=== PATIENT | male | born 1980 | race Caucasian/White ===

== ENCOUNTER 2017-06-07 21:33 | Emergency (ER) | payer BC, OTHER ==
[~2017-06-07] VITALS: Ht 175.3 cm; Wt 75.1 kg
[~2017-06-07 21:33] MED LIST: GLC500 PO; GLIM2TAB2 PO; LISI-461 PO; PRAV20TA PO; RISP1TAB68 PO
[2017-06-07 21:37] VITALS: TEMP 36.4; Ht 175.3 cm; Wt 75.1 kg
[2017-06-07] MEDS ORDERED: PRAV20TA2 PO (21:59)
[2017-06-07] MEDS ORDERED: METF-384 PO (21:59)
[2017-06-07] MEDS ORDERED: LIDOCAINE HCL 2% VISC SOLN 20 ML UDC PO STA (22:01)
[2017-06-07] MEDS ORDERED: ALUMINUM/MAGNESIUM SUSP 30 ML UDC PO STA (22:01)
[2017-06-07 22:17] VITALS: O2SAT 97
[2017-06-07 22:36] LABS: BASO % 0.6 %; BASO ABS # 0.05 K/uL (0-0.2); EOS % 2.3 %; EOS ABS # 0.18 K/uL (0-0.5); HEMATOCRIT 45.4 % (42-52); HEMOGLOBIN 16.6 g/dL (14.0-18.0); IG# 0.03 K/uL (0.00-0.02); LYMPH % 30.6 %; LYMPH ABS # 2.42 K/uL (1.2-3.4); MEAN CELL VOLUME 84.2 fL (80-100); MEAN CORPUSCULAR HEMOGLOBIN 30.8 pg (25-34); MEAN CORPUSCULAR HGB CONC 36.6 g/dl (32-36); MEAN PLATELET VOLUME 10.5 fL (7.4-10.4); MONO % 4.9 %; MONO ABS # 0.39 K/uL (0.11-0.59); NEUT % 61.2 %; NEUT ABS # 4.84 K/uL (1.4-6.5); PLATELET COUNT 186 K/uL (130-400); RED CELL DISTRIBUTION WIDTH CV 12.1 % (11.5-14.5); RED CELL DISTRIBUTION WIDTH SD 36.6 fL (36.4-46.3); WHITE BLOOD COUNT 7.91 K/uL (4.8-10.8)
--- NOTE | 2017-06-07 22:59 | DIAGNOSTIC IMAGING REPORT ---
ULTRASOUND RIGHT UPPER QUADRANT ABDOMEN CLINICAL HISTORY: Epigastric abdominal pain. COMPARISON STUDY: No priors. TECHNIQUE: Real-time, grayscale, and color flow sonography of the right upper quadrant of the abdomen was performed. Images are reviewed in the transverse and longitudinal planes. FINDINGS: Liver: The liver is normal in size and echotexture. There is no intrahepatic biliary ductal dilatation. The main portal vein is patent. Gallbladder: The gallbladder is contracted. No gallstones are identified. There is no gallbladder wall thickening or pericholecystic fluid. A sonographic Moreno's sign is reportedly absent. The common bile duct measures up to 0.3 cm in diameter. Pancreas: Visualized portions of the pancreatic head and body are normal in appearance. Right kidney: Survey images of the right kidney demonstrate normal size and echotexture. There is no hydronephrosis. Ascites: None. IMPRESSION: Unremarkable sonographic assessment of the right upper quadrant. No gallstones are identified. Electronically signed by: Edi Islas M.D. 06/07/2017 10:58 PM Dictated Date/Time: 06/07/2017 10:57 PM
[2017-06-07 23:01] LABS: GLUCOSE 542 mg/dl (70-99)
[2017-06-07 23:02] LABS: ALBUMIN 4.2 gm/dl (3.4-5.0); ALKALINE PHOSPHATASE 121 U/L (45-117); ALT/SGPT 22 U/L (12-78); AST/SGOT 7 U/L (15-37); BLOOD UREA NITROGEN 11 mg/dl (7-18); CALCIUM 9.2 mg/dl (8.5-10.1); CARBON DIOXIDE 32 mmol/L (21-32); CREATININE 0.95 mg/dl (0.60-1.40); LIPASE 519 U/L (73-393); POTASSIUM 4.1 mmol/L (3.5-5.1); SODIUM 132 mmol/L (136-145); TOTAL PROTEIN 6.9 gm/dl (6.4-8.2)
[2017-06-07] MEDS ORDERED: SODIUM CHLORIDE 0.9% 1000ML 2,000 ML IV STA (23:07)
[2017-06-07] MEDS ORDERED: NovoLIN-R INSULIN PER UNIT CHARGE IV STA (23:07)
[2017-06-07] MEDS ORDERED: PANTOprazole SOD 40 MG TAB PO STA (23:12)
[2017-06-08] MEDS ORDERED: PANT40TA PO (00:47)
[2017-06-08 01:33] VITALS: BP 123/71; PULSE 78; O2SAT 98
--- NOTE | 2017-06-08 03:01 | EMERGENCY ROOM VISIT NOTE ---
History First contact with patient: 21:48 Chief Complaint: ABDOMINAL PAIN Stated Complaint: ABD PAIN Nursing Triage Summary: Pt c/o upper and LLQ abdominal pain for a few days, states that it feels like something is moving, pt denies n/v/d, fever or chills. Pt denies pre ED tx. History of Present Illness The patient is a 37 year old male who presents to the Emergency Room with complaints of epigastric discomfort for the past few days described as aching, ranging in severity 5 out of 10. Nothing makes it better or worse. Patient denies chest pain, dyspnea, fever, chills, nausea, vomiting, diarrhea, back pain , urinary symptoms, dysuria pain, penile pain. Patient does not routinely check his blood sugars. He has been underneath more stressed lately. No history of stomach ulcers. Review of Systems See HPI for pertinent positives & negatives. A total of 10 systems reviewed and were otherwise negative. Past Medical/Surgical History Medical Problems: (1) Benign hypertension (2) Diabetes mellitus (3) Hyperlipidemia (4) Psychotic disorder Social History Smoking Status: Current Every Day Smoker Alcohol Use: none Drug Use: none Marital Status: Housing Status: lives with family Occupation Status: unemployed Current/Historical Medications Scheduled Glimepiride (Glimepiride), 2 MG PO DAILY Lisinopril (Zestril), 10 MG PO DAILY Metformin Hcl (Glucophage), 1,000 MG PO BIDM Pantoprazole (Protonix), 40 MG PO DAILY Pravastatin Sodium (Pravachol), 20 MG PO DAILY Physical Exam Vital Signs Date Time Temp Pulse Resp B/P (MAP) Pulse Ox O2 Delivery O2 Flow Rate FiO2 06/08/17 01:33 78 18 123/71 98 06/07/17 22:52 86 20 129/77 97 Room Air 06/07/17 22:21 94 06/07/17 22:17 97 Room Air 06/07/17 21:37 36.4 119 18 157/75 98 Room Air Physical Exam VITALS: Vitals are noted on the nurse's note and reviewed by myself. Vital signs stable. GENERAL: Pleasant male, in no acute distress, nondiaphoretic, well-developed well-nourished. SKIN: The skin was without rashes, erythema, edema, or bruising. There is no tenting of the skin. Capillary reflex less than 2 seconds. HEAD: Normocephalic atraumatic. EARS: External auditory canals clear, tympanic membranes pearly ellsworth without erythema or effusion bilaterally. EYES: Pupils equal round and reactive to light and accommodation. Conjunctivae without injection, sclerae without icterus. Extraocular movements intact. NOSE: Patent, turbinates without inflammation or discharge. MOUTH: Mucous membranes moist. Pharynx without erythema or exudate. Uvula midline. Airway patent. Tongue does not deviate. NECK: Supple without nuchal rigidity. No lymphadenopathy. No thyromegaly. Cervical spine is nontender. No JVD. HEART: Regular rate and rhythm without murmurs gallops or rubs. LUNGS: Clear to auscultation bilaterally without wheezes, rales or rhonchi. No dullness to percussion. No retractions or accessory muscle use. ABDOMEN: Positive bowel sounds x 4. Normal tympanic percussion. Soft, minimally tender epigastric region, no CVA tenderness, without masses or organomegaly. Moreno sign negative. No guarding or rebound tenderness. MUSCULOSKELETAL: No muscle atrophy, erythema, or edema noted. NEURO: Patient was alert and oriented to person place and time. Normal sensation to light and sharp touch. No focal neurological deficits. Medical Decision & Procedures Laboratory Results 06/07/17 22:14 Red Blood Count 5.39, Mean Corpuscular Volume 84.2, Mean Corpuscular Hemoglobin 30.8, Mean Corpuscular Hemoglobin Concent 36.6, Mean Platelet Volume 10.5, Neutrophils (%) (Auto) 61.2, Lymphocytes (%) (Auto) 30.6, Monocytes (%) (Auto) 4.9, Eosinophils (%) (Auto) 2.3, Basophils (%) (Auto) 0.6, Neutrophils # (Auto) 4.84, Lymphocytes # (Auto) 2.42, Monocytes # (Auto) 0.39, Eosinophils # (Auto) 0.18, Basophils # (Auto) 0.05 06/07/17 22:14 Test 06/07/17 22:14 06/07/17 23:20 06/08/17 00:05 06/08/17 01:20 White Blood Count 7.91 K/uL (4.8-10.8) Red Blood Count 5.39 M/uL (4.7-6.1) Hemoglobin 16.6 g/dL (14.0-18.0) Hematocrit 45.4 % (42-52) Mean Corpuscular Volume 84.2 fL (80-100) Mean Corpuscular Hemoglobin 30.8 pg (25-34) Mean Corpuscular Hemoglobin Concent 36.6 g/dl (32-36) Platelet Count 186 K/uL (130-400) Mean Platelet Volume 10.5 fL (7.4-10.4) Neutrophils (%) (Auto) 61.2 % Lymphocytes (%) (Auto) 30.6 % Monocytes (%) (Auto) 4.9 % Eosinophils (%) (Auto) 2.3 % Basophils (%) (Auto) 0.6 % Neutrophils # (Auto) 4.84 K/uL (1.4-6.5) Lymphocytes # (Auto) 2.42 K/uL (1.2-3.4) Monocytes # (Auto) 0.39 K/uL (0.11-0.59) Eosinophils # (Auto) 0.18 K/uL (0-0.5) Basophils # (Auto) 0.05 K/uL (0-0.2) RDW Standard Deviation 36.6 fL (36.4-46.3) RDW Coefficient of Variation 12.1 % (11.5-14.5) Immature Granulocyte % (Auto) 0.4 % Immature Granulocyte # (Auto) 0.03 K/uL (0.00-0.02) Anion Gap 5.0 mmol/L (3-11) Est Creatinine Clear Calc Drug Dose 107.5 ml/min Estimated GFR () 118.9 Estimated GFR (Non- 102.6 BUN/Creatinine Ratio 11.1 (10-20) Calcium Level 9.2 mg/dl (8.5-10.1) Total Bilirubin 0.5 mg/dl (0.2-1) Direct Bilirubin 0.1 mg/dl (0-0.2) Aspartate Amino Transf (AST/SGOT) 7 U/L (15-37) Alanine Aminotransferase (ALT/SGPT) 22 U/L (12-78) Alkaline Phosphatase 121 U/L (45-117) Troponin I < 0.015 ng/ml (0-0.045) Total Protein 6.9 gm/dl (6.4-8.2) Albumin 4.2 gm/dl (3.4-5.0) Lipase 519 U/L (73-393) Beta-Hydroxybutyric Acid 5.30 mg/dL (0.2-2.81) Urine Color YELLOW Urine Appearance CLEAR (CLEAR) Urine pH 5.0 (4.5-7.5) Urine Specific Wilson 1.042 (1.000-1.030) Urine Protein NEG (NEG) Urine Glucose (UA) 3+ (NEG) Urine Ketones NEG (NEG) Urine Occult Blood NEG (NEG) Urine Nitrite NEG (NEG) Urine Bilirubin NEG (NEG) Urine Urobilinogen NEG (NEG) Urine Leukocyte Esterase NEG (NEG) Bedside Troponin I < 0.030 ng/ml (0-0.045) Bedside Glucose 233 mg/dl (70-99) Medications Administered Medications (Trade) Dose Ordered Sig/Rafaela Route Start Time Stop Time Status Last Admin Dose Admin Lidocaine HCl (Viscous Lidocaine 2% Soln) 10 ml NOW STAT PO 06/07/17 22:01 06/07/17 22:03 DC 06/07/17 22:14 10 ML Al Hydroxide/Mg Hydroxide (Maalox Susp) 30 ml NOW STAT PO 06/07/17 22:01 06/07/17 22:03 DC 06/07/17 22:14 30 ML Sodium Chloride 2,000 ml @ 999 mls/hr Q2H1M STAT IV 06/07/17 23:07 06/08/17 01:07 DC 06/07/17 23:21 999 MLS/HR Insulin Human Regular (novoLIN-R U-100 PER UNIT) 10 units NOW STAT IV 06/07/17 23:07 06/07/17 23:09 DC 06/07/17 23:23 10 UNITS Pantoprazole Sodium (Protonix Tab) 40 mg NOW STAT PO 06/07/17 23:12 06/07/17 23:13 DC 06/07/17 23:21 40 MG ED Course Prior records/ancillary studies reviewed. Triage Nursing notes reviewed. The patient's history was concerning for abdominal pain. Differential diagnosis: Etiologies such as appendicitis, diverticulitis, PUD, biliary pathology, UTI, pancreatitis, obstruction, mesenteric ischemia, aortic pathology, infections, inflammatory bowel disease, renal colic, as well as others were entertained. Physical examination findings: As above. ER treatment provided: IV fluids, insulin, GI cocktail On reassessment the patient felt better. Diagnostics interpreted by me: The labs revealed hyperglycemia without DKA. Repeat blood sugar is improved. Negative urine Imaging studies: Ultrasound negative for acute cholecystitis per radiology Exam and history seem consistent with reflux and hyperglycemia without DKA. Patient felt much better after being medicated as above. He did not have acute abdomen on exam. Symptoms have been ongoing for several days now. He was counseled on his blood sugar. He was advised to monitor this. No signs of infection. Patient had no chest pain or shortness of breath or coughing. No flulike illness. He had a negative urine. He was advised take medications as directed, rest, stay well-hydrated and to follow-up family care in a day or 2 or here in the ER sooner for chest pain, difficulty breathing, fevers, vomiting , black or blood in the stool, worsening signs or symptoms or as needed. By the evaluation outlined above emergent etiologies such as appendicitis, diverticulitis, PUD, biliary pathology, UTI, pancreatitis, obstruction, mesenteric ischemia, aortic pathology, infections, inflammatory bowel disease, renal colic, as well as others were deemed relatively unlikely. The pt informed about the findings as listed above. All questions were answered and pleased with the treatment. Return instructions were outlined and the patient was discharged in stable condition. Outpatient prescription management: Protonix Referral: The patient was referred back to their primary care physician for follow-up in 2 to 3 days for a recheck of the current condition. Case reviewed with my attending. The chart was completed utilizing [employer] Speech voice recognition software. Grammatical errors, random word insertions, pronoun errors, and incomplete sentences are an occassional consequence of this system due to software limitations, ambient noise, and hardware issues. Any formal questions or concerns about the content, text, or information contained within the body of this dictation should be directly addressed to the physician assistant statistician for clarification. Medical Decision As above Medication Reconcilliation Current Medication List: was personally reviewed by me Blood Pressure Screening Patient's blood pressure: Normal blood pressure Impression Primary Impression: GERD (gastroesophageal reflux disease) Additional Impression: Hyperglycemia due to type 2 diabetes mellitus Departure Information Dispostion Home / Self-Care Condition GOOD Prescriptions Pantoprazole (Protonix) 40 Mg Tab 40 MG PO DAILY for 14 Days, #14 TAB Prov: Yessi Sheppard .ESPERANZA 06/08/17 Forms Call Back Authorization, HOME CARE DOCUMENTATION FORM, Work Instructions, Return To Work: 2 days IMPORTANT VISIT INFORMATION Patient Instructions Hyperglycemia, GERD, My [facility] Additional Instructions Monitor your blood sugar. It is high. Protonix 40 m tablet daily for next 2 weeks. Take this on an empty stomach. Try Maalox or Zantac for breakthrough symptoms for reflux. Avoid large meals. Avoid acidic foods. Rest and drink plenty of fluids as tolerated. Continue current medications. Avoid strenuous activities and anything that worsens your pain. Resume normal activities once your symptoms resolve. Return to the ER immediately for worsening or persistent chest pain, abdominal pain, black or blood in your stools, vomiting, fevers, chest pains, difficulty breathing, worsening of your condition, or as needed. Follow up with your primary physician in 2-3 days for a recheck of your current condition. Work Instructions Return To Work: 2 days Problem Qualifiers Primary Impression: GERD (gastroesophageal reflux disease) Esophagitis presence: esophagitis presence not specified Qualified Codes: K21.9 - Gastro-esophageal reflux disease without esophagitis Additional Impression: Hyperglycemia due to type 2 diabetes mellitus Diabetes mellitus hims coder insulin use: without prison use Qualified Codes: E11.65 - Type 2 diabetes mellitus with hyperglycemia
== END 2017-06-08 01:39 | disposition home or self-care (01) ==
LOC: C.EDB 21:36 → C.EDC 06-08 01:39
DX: K21.9 Gastro-esophageal reflux disease without esophagitis (principal); E11.65 Type 2 diabetes mellitus with hyperglycemia; I10 Essential (primary) hypertension; E78.5 Hyperlipidemia, unspecified; F17.200 Nicotine dependence, unspecified, uncomplicated; Z86.59 Personal history of other mental and behavioral disorders; Z79.84 Long term (current) use of oral hypoglycemic drugs; Z79.899 Other long term (current) drug therapy

== ENCOUNTER 2022-06-10 20:41 | Inpatient (IN) ==
--- NOTE | 2022-06-10 22:38 | Emergency Department Note ---
History of Present Illness General Chief complaint: Dental/Oral Stated complaint: SWOLLEM FACE, BAD TOOTH Time Seen by Provider: 06/10/22 22:36 History of Present Illness Maximum Pain Intensity: 8 This 42-year-old male patient presents to the emergency department for evaluation of dental pain and swollen face. He has been complaining of left upper dental pain since yesterday and now has left-sided facial swelling. The swelling is getting progressively worse and seems to be getting worse pretty quick. Denies any discharge from the mouth. Denies fevers. Still able to swallow, but it is painful. Having a lot of pressure around his left eye as well, but no change in his vision. He rates the pain as sharp and throbbing and 8/10. He has not seen anyone for the symptoms yet and does not have a dentist appointment yet. Denies any chest pain or SOB. Denies any abdominal pain, nausea, or vomiting. He is a diabetic. Home Medications Medication Instructions Recorded Confirmed Type albuterol sulfate 90 mcg/actuation 2 puff inhalation Q4H PRN 06/11/22 06/11/22 History aerosol inhaler Shortness Of Breath Or Wheezing insulin aspart U-100 100 unit/mL 12 unit subcut AC 06/11/22 06/11/22 History (3 mL) subcutaneous pen insulin glargine 100 unit/mL (3 30 unit subcut HS 06/11/22 06/11/22 History mL) subcutaneous pen (Lantus Solostar U-100 Insulin) simvastatin 40 mg tablet 40 mg PO HS 06/11/22 06/11/22 History Allergies Allergy/AdvReac Type Severity Reaction Status Date / Time No Known Allergies Allergy Mild NONE Verified 03/06/09 08:13 Past Med/Surg History Medical History GERD (gastroesophageal reflux disease) Hyperglycemia due to type 2 diabetes mellitus Surgical History No pertinent past surgical history Social History Smoking Status: Current every day smoker Hx Alcohol Use: No Hx Substance Use: No Preferred Language: Kittitian Communication Ability: Effective Business Ethics Professor Required: No Beliefs That Will Affect Care: None Current Living Situation: Spouse Feels Safe at Home: Yes Review of Systems See HPI for pertinent positives & negatives. Physical Exam Vital Signs Vital Signs - 24 hr 06/10/22 20:45 06/10/22 23:44 06/11/22 02:31 Temperature 36.3 C L 36.9 C Temperature Source Temporal Artery Scan Oral Pulse Rate 98 H Pulse Rate [Finger] 75 80 Pulse Rhythm [Finger] Pulse Strength [Finger] Respiratory Rate 18 20 16 Respiratory Effort / Characteristics Non-Labored Non-Labored Spontaneous Respiratory Depth Normal Normal Respiratory Pattern Blood Pressure 191/99 H Blood Pressure [Right Arm] 161/85 H 170/103 H Blood Pressure Mean 129 Blood Pressure Mean [Right Arm] 110 125 Blood Pressure Position [Right Arm] Pulse Oximetry 99 96 98 Oxygen Delivery Method Room Air Room Air Room Air Sepsis Recent Fever Within 48 Hours No Sepsis New/Unexplained Change in Mental Status No Sepsis Action Taken by Nursing No Action Required 06/11/22 03:00 Temperature Temperature Source Pulse Rate Pulse Rate [Finger] 85 Pulse Rhythm [Finger] Regular Pulse Strength [Finger] Normal Respiratory Rate 18 Respiratory Effort / Characteristics Non-Labored Respiratory Depth Normal Respiratory Pattern Regular Blood Pressure Blood Pressure [Right Arm] 168/88 H Blood Pressure Mean Blood Pressure Mean [Right Arm] 114 Blood Pressure Position [Right Arm] Lying Pulse Oximetry 98 Oxygen Delivery Method Room Air Sepsis Recent Fever Within 48 Hours Sepsis New/Unexplained Change in Mental Status Sepsis Action Taken by Nursing Vital Signs: Vitals are noted on the nurse's note and reviewed by myself. GENERAL: 42-year-old male, in no acute distress, non-diaphoretic, well-developed well-nourished. SKIN: There is significant edema to the left side of the face extending from just below the maxillary/zygomatic process up towards the left eye. The left eye is now starting to become swollen shut from the edema. Minimal erythema without warmth. No fluctuance or induration noted. Capillary reflex less than 2 seconds. HEAD: Normocephalic atraumatic. EARS: External auditory canals clear, tympanic membrane pearly ellsworth without erythema or effusion. No tragus tenderness. No mastoid tenderness. EYES: Pupils equal round and reactive to light and accommodation. Conjunctivae without injection, sclerae without icterus. Extraocular movements intact. NOSE: Patent, turbinates inflamed with no discharge. Positive left-sided maxillary sinus tenderness. MOUTH: There is a dental brandon of the left upper canine, but no obvious evidence for discharge or abscess. The gum is swollen and tender around the tooth. Mucous membranes moist. Airway patent, uvula midline. Pharynx without erythema or edema. No exudate or postnasal drip. No evidence for peritonsillar abscess. NECK: Supple without nuchal rigidity. No lymphadenopathy. HEART: Regular rate and rhythm without murmurs gallops or rubs. LUNGS: Clear to auscultation bilaterally without wheezes, rales or rhonchi. No accessory muscle use or retractions. NEURO: Patient was alert and oriented to person place and time. Course Administered Medications Discontinued Medications Sodium Chloride (Nss 1000ml) 1,000 mls @ 999 mls/hr IV .Q1H1M ONE Stop: 06/11/22 00:05 Last Infusion: 06/11/22 00:52 Dose: 0 mls/hr Documented By: Admin: 06/10/22 23:40 Dose: 999 mls/hr Documented By: FRED Ampicillin Sodium/Sulbactam Sodium 3,000 mg/ Sodium Chloride 108 mls @ 200 mls/hr IV NOW STA; Protocol Stop: 06/10/22 23:37 Last Infusion: 06/11/22 00:12 Dose: 0 mls/hr Documented By: Admin: 06/10/22 23:40 Dose: 200 mls/hr Documented By: FRED Ioversol (Optiray 350 100ml) 100 ml IV ONCE ONE Stop: 06/11/22 00:20 Last Admin: 06/11/22 00:19 Dose: 85 ml Documented By: GERMÁN Ketorolac Tromethamine (Ketorolac Tromethamine 15 Mg/Ml Vial) 10 mg IV NOW ONE Stop: 06/10/22 23:06 Last Admin: 06/10/22 23:40 Dose: 10 mg Documented By: FRED Morphine Sulfate (Morphine Sulfate 2 Mg/Ml Carp) 2 mg IV NOW STA Stop: 06/11/22 01:26 Last Admin: 06/11/22 01:42 Dose: 2 mg Documented By: BAYRON Ondansetron HCl (Ondansetron Inj 2 Mg/Ml 2 Ml Vial) 4 mg IV NOW STA Stop: 06/11/22 01:26 Last Admin: 06/11/22 01:42 Dose: 4 mg Documented By: BAYRON Medical Decision Making Differential Diagnosis Differential diagnosis includes dental abscess, dental infection, facial cellulitis, facial abscess, sinusitis, sepsis, or others. Laboratory Data Attestation: I reviewed the patient's lab results. 06/10/22 23:18 06/10/22 23:18 Lab Results 06/10/22 06/10/22 06/11/22 Range/Units 23:18 23:18 01:17 WBC 12.54 H (4.8-10.8) K/ul RBC 5.09 (4.63-6.08) M/uL Hgb 15.3 (14.0-18.0) g/dl Hct 43.2 (40.1-51.0) % MCV 84.9 (80.0-100.0) fL MCH 30.1 (25.0-34.0) pg MCHC 35.4 (32.0-36.0) g/dL RDW Std Deviation 37.2 (36.4-46.3) fL RDW Coeff of Diego 12.3 (11.5-14.5) % Plt Count 242 (130-400) K/uL MPV 10.1 (9.4-12.4) fL Immature Gran % (Auto) 0.4 % Neut % (Auto) 79.7 % Lymph % (Auto) 12.7 % [place] % (Auto) 5.9 % Eos % (Auto) 1.0 % Baso % (Auto) 0.3 % Neut # (Auto) 10.00 H (1.4-6.5) K/uL Lymph # (Auto) 1.59 (1.2-3.4) K/uL [place] # (Auto) 0.74 (0.24-0.82) K/uL Eos # (Auto) 0.12 (0-0.50) K/uL Baso # (Auto) 0.04 (0-0.2) K/uL Immature Gran # (Auto) 0.05 H (0.00-0.02) K/uL Sodium 141 (136-145) mmol/L Potassium 3.7 (3.5-5.1) mmol/L Chloride 105 (98-107) mmol/L Carbon Dioxide 29 (21-32) mmol/L Anion Gap 7 (3-11) BUN 12 (6-23) mg/dl Creatinine 0.78 (0.6-1.4) mg/dl Est Cr Clr Drug Dosing 151.6 ml/min Est GFR ( Amer) 129.0 ml/min Est GFR (Non-Af Amer) 111.3 ml/min BUN/Creatinine Ratio 15.4 (10-20) Glucose 142 H (70-99(Fasting)) mg/dl Calcium 9.0 (8.5-10.1) mg/dl SARS-CoV-2, RNA, NAAT POSITIVE A* (NEGATIVE) Imaging Data Radiologist's Impression: Preliminary Findings Only See Final Report For Complete Findings CT FACIAL: Left facial and preseptal subcutaneous soft tissue swelling, extending anterior aspect of left hemimandible. No discrete subcutaneous abscess or collection. No radiopaque foreign body. No fracture. Evaluation teeth is limited by presence of dental amalgam. Prominent dental brandon involving the left maxillary canine tooth. Multiple additional dental car ies involving the bilateral maxillary molars. Mandible appears intact. No definite periapical abscess. Although the left facial inflammatory changes may be related to periodontal disease, there is severe paranasal sinus disease with near total opacification of the left maxillary sinus with an air-fluid level and partial opacification bilateral ethmoid air cells and frontal sinuses. Underlying paranasal sinus disease is a consideration. Orbital contents are unremarkable. Radiologist: Nicholas Marshall M.D. Study ready at 00:28 and initial results transmitted at 00:49 MDM Narrative I examined the patient. An IV lock was placed and labs were drawn. The patient was given Toradol 10 mg IV and 1 L of normal saline solution bolus. He was given Unasyn 3 g IV. White blood cell count elevated at 12.54 with elevated neutrophils. Glucose 142, but BMP otherwise unremarkable. CT scan of the face with contrast was reviewed by myself and read by stat rad as above and shows left facial and preseptal subcutaneous soft tissue swelling, extending anterior aspect of left hemimandible. No discrete subcutaneous abscess or collection. There is a prominent dental carry of the left maxillary canine tooth which is the symptomatic tooth per patient. There is also severe paranasal sinus disease with near-total opacification of the left maxillary sinus. The patient's left- sided facial swelling was getting progressively worse during his stay in the emergency department. His left eye is now partially swollen shut from the edema. He is a diabetic with leukocytosis and I feel that the patient requires admission for IV antibiotics due to the quickly worsening cellulitis. I spoke with the on-call hospitalist who agreed to admit the patient for further treatment. Please refer to their dictation for further details. The patient's COVID test prior to admission did come back positive. The patient states that he was not having any symptoms of COVID and does not know of any known contacts with COVID. The patient's care was transferred in stable condition. Impression & Plan Facial cellulitis, Dental caries, Paranasal sinus disease, COVID-19 Discharge Plan Visit Data Chief Complaint: Dental/Oral Stated Complaint: SWOLLEM FACE, BAD TOOTH ED Provider: Zuly Lockhart ED Midlevel Provider: Kayla Layton Discharge Problem: Facial cellulitis, Dental caries, Paranasal sinus disease, COVID-19 Patient Disposition: Admitted As Inpatient Condition: Good Discharge Instructions Interventions: ED Discharge Assessment Last Done: 06/11/22 03:44
[2022-06-10] MEDS ORDERED: SODIUM CHLORIDE 0.9% 1000ML 1,000 ML IV ONE (23:05)
[2022-06-10] MEDS ORDERED: AMPICILLIN/SULBACTAM SOD 3,000 MG in 0.9 % SODIUM CHLORIDE 100 ML IV STA (23:05)
[2022-06-10] MEDS ORDERED: KETOROLAC TROMETHAMINE 15 MG/ML VIAL IV ONE (23:05)
[2022-06-10 23:28] LABS: Basophils # (auto) 0.04 K/uL (0-0.2); Basophils % (auto) 0.3 %; Eosinophils # (auto) 0.12 K/uL (0-0.50); Hematocrit (blood only) 43.2 % (40.1-51.0); Hemoglobin 15.3 g/dl (14.0-18.0); Immature Granulocytes # (auto) 0.05 K/uL (0.00-0.02); Immature Granulocytes % (auto) 0.4 %; Lymphocytes # (auto) 1.59 K/uL (1.2-3.4); Lymphocytes % (auto) 12.7 %; Mean Corpuscular Hemoglobin 30.1 pg (25.0-34.0); Mean Corpuscular Hgb Conc 35.4 g/dL (32.0-36.0); Mean Corpuscular Volume 84.9 fL (80.0-100.0); Mean Platelet Volume 10.1 fL (9.4-12.4); Monocytes # (auto) 0.74 K/uL (0.24-0.82); Monocytes % (auto) 5.9 %; Neutrophils % (auto) 79.7 %; Platelet Count 242 K/uL (130-400); RDW Coefficient of Variation 12.3 % (11.5-14.5); RDW Standard Deviation 37.2 fL (36.4-46.3); Red Blood Count 5.09 M/uL (4.63-6.08); White Blood Count 12.54 K/ul (4.8-10.8)
[2022-06-10 23:56] LABS: BUN Creatinine Ratio 15.4 (10-20); Creatinine Clr Calc Pharmacy 151.6 ml/min; Est GFR (Non-African American) 111.3 ml/min; Potassium 3.7 mmol/L (3.5-5.1)
[2022-06-11] MEDS ORDERED: OPTIRAY 350 100ml IV ONE (00:19)
[2022-06-11] MEDS ORDERED: MoRPHine SULFATE 2 MG/ML CARP IV STA (01:25)
[2022-06-11] MEDS ORDERED: ONDANSETRON INJ 2 MG/ML 2 ML VIAL IV STA (01:25)
[2022-06-11] MEDS ORDERED: hydrALAZINE HCL 20 MG/ML VIAL IV PRN (03:43)
[2022-06-11] MEDS ORDERED: GLUCOSE 10 TAB/TUBE PO PRN (03:43)
[2022-06-11] MEDS ORDERED: GLUCAGON FOR INJ 1 MG VIAL SQ PRN (03:43)
[2022-06-11] MEDS ORDERED: GLUCOSE 40% GEL 15 GM TUBE PO PRN (03:43)
[2022-06-11] MEDS ORDERED: DEXTROSE 50% 50 ML SYRINGE IV PRN (03:43)
[2022-06-11] MEDS ORDERED: PHARMACY GLYCEMIC MGMT CONSULT PRN (03:43)
[2022-06-11] MEDS ORDERED: CARBOHYDRATES FOR HYPOGLYCEMIA PO PRN (03:43)
[2022-06-11] MEDS ORDERED: ALBUTEROL HFA 8 GM INHALER INH PRN (03:43)
--- NOTE | 2022-06-11 05:05 | History and Physical Report ---
DATE OF ADMISSION: 06/11/2022 CHIEF COMPLAINT: Dental infection. HISTORY OF PRESENT ILLNESS: A 42-year-old male with past medical history significant for type 2 diabetes, hyperlipidemia, diabetic retinopathy, hypertension and tobacco abuse, presents with dental infection. The patient says he noticed pain in his left upper tooth since yesterday. It is not getting better. Also, his left face is swollen and having a pain while eating. Denies any fever or chills. No chest pain or shortness of breath, no nausea, no vomiting, no abdominal pain. Normal bowel and bladder movements. No swelling in the legs. No headache, no blurred visions, no earache, no runny nose, no sore throat, no cough. Resting comfortably, hemodynamically stable. His COVID test came back positive. The patient is not COVID vaccinated, but saturating okay on room air. ALLERGIES: No known drug allergies. PAST MEDICAL HISTORY: As mentioned above. PAST SURGICAL HISTORY: None. MEDICATIONS: The patient is on albuterol 2 puffs inhalation q. 4 hours p.r.n., NovoLog 12units subcutaneously a.c., Lantus 30 units subcutaneous at bedtime, simvastatin 40 mg p.o. at bedtime. FAMILY HISTORY: Significant for paternal grandfather has diabetes. SOCIAL HISTORY: , smokes cigarettes. Alcohol, rarely. No drug use. REVIEW OF SYSTEMS: As per HPI. Rest of the review of systems is negative. PHYSICAL EXAMINATION: GENERAL: The patient is obese, not in acute distress. VITAL SIGNS: Temperature 36.9, pulse 80, respiratory rate 16, blood pressure 170/103, oxygen 98% on room air. HEENT: Pupils equal, round and reactive to light. Broken dentition, last molar on the left upper teeth, left sided facial swelling. NECK: No JVD. No neck masses. CARDIOVASCULAR: S1 and S2 heard. Regular rate and rhythm. No murmur, no gallop. RESPIRATORY SYSTEM: Normal AP diameter. No accessory muscle use. No wheezing, no crackles. ABDOMEN: Soft, bowel sounds present, nontender, no distention. CENTRAL NERVOUS SYSTEM: Cranial nerves II through XII are grossly intact, nonfocal. EXTREMITIES: No edema, no erythema. LABORATORY DATA: WBC 12.5, hemoglobin 15.3, hematocrit 43.2, platelets 242. Sodium 141, potassium 3.7, chloride 105, bicarb 29, BUN 12, creatinine 0.7, serum glucose 142, calcium 9. SARS-CoV-2 rapid test positive. IMAGING DATA: Facial CT, preliminary report showing left facial and preseptal subcutaneous soft tissue swelling extending anterior aspect of the left hemimandible. No discrete subcutaneous abscess or collection. No fracture. Prominent dental caries involving the left maxillary canine tooth. Multiple additional dental caries involving the bilateral maxillary molar, underlying paranasal disease ASSESSMENT AND PLAN: This is a 42-year-old male who presents with a dental infection and facial cellulitis. 1. Dental infection and facial cellulitis on left sided upper teeth. No obvious abscess on the facial CT. We will follow the final report. ER started on unasyn which will be continued. We will keep him n.p.o. for now, IV fluids, pain control. Consult oral surgery. Monitor in the hospital. 2. Diabetes, currently the patient is n.p.o., we will place him on Lantus 15 units with insulin sliding scale. Follow HbA1c. Pharmacy consultation .To increase the Lantus to his home dose if started on diet. 3. Hypertension,. Place him on hydralazine p.r.n. If blood pressure keeps elevated, we will start him on TATY inhibitors or ARBs. 4. Hyperlipidemia: On statin. 5. Obesity: Needs counseling. 6. COVID. Incidental finding, asymptomatic. COVID precautions. 7. Deep venous thrombosis prophylaxis: Heparin subcutaneously. DISPOSITION: Closely monitor in the medical floor. PT/OT prior to discharge. Social service to help with discharge planning. Job ID: [id number] [facility]
[2022-06-11] MEDS: INSULIN ASPART PER UNIT SC SCH ×5 (05:35→23:38)
[2022-06-11] MEDS: SODIUM CHLORIDE 0.9% 1000ML 1,000 ML IV SCH ×3 (05:45→19:47)
[2022-06-11] MEDS: AMPICILLIN/SULBACTAM SOD 3,000 MG in 0.9 % SODIUM CHLORIDE 100 ML IV SCH ×3 (05:45→17:39)
[2022-06-11] MEDS: HEPARIN SOD 5,000 UNIT/0.5 ML VIAL SQ SCH ×3 (05:49→21:31)
[2022-06-11 07:11] LABS: Basophils # (auto) 0.04 K/uL (0-0.2); Basophils % (auto) 0.3 %; Eosinophils # (auto) 0.12 K/uL (0-0.50); Hematocrit (blood only) 40.6 % (40.1-51.0); Hemoglobin 14.1 g/dl (14.0-18.0); Immature Granulocytes # (auto) 0.04 K/uL (0.00-0.02); Immature Granulocytes % (auto) 0.3 %; Lymphocytes # (auto) 1.59 K/uL (1.2-3.4); Lymphocytes % (auto) 12.8 %; Mean Corpuscular Hemoglobin 29.7 pg (25.0-34.0); Mean Corpuscular Hgb Conc 34.7 g/dL (32.0-36.0); Mean Corpuscular Volume 85.7 fL (80.0-100.0); Mean Platelet Volume 10.2 fL (9.4-12.4); Monocytes # (auto) 0.88 K/uL (0.24-0.82); Monocytes % (auto) 7.1 %; Neutrophils % (auto) 78.5 %; Platelet Count 227 K/uL (130-400); RDW Coefficient of Variation 12.1 % (11.5-14.5); Red Blood Count 4.74 M/uL (4.63-6.08); White Blood Count 12.47 K/ul (4.8-10.8)
[2022-06-11 07:47] LABS: Calcium 8.1 mg/dl (8.5-10.1); Creatinine Clr Calc Pharmacy 157.7 ml/min; Est GFR (African American) 131.1 ml/min; Est GFR (Non-African American) 113.1 ml/min; Magnesium 1.7 mg/dl (1.7-2.4); Potassium 3.5 mmol/L (3.5-5.1)
--- NOTE | 2022-06-11 08:21 | CT Scan Report ---
CT SCAN OF THE FACIAL BONES WITH IV CONTRAST CLINICAL HISTORY: Facial swelling. COMPARISON STUDY: No priors. TECHNIQUE: High-resolution CT scan of the facial bones is performed following the IV administration of 85 cc of Optiray 350. Images are reviewed in the axial, sagittal, and coronal planes. IV contrast was administered without complication. A dose lowering technique was utilized adhering to the princi ples of HELADIO. CT DOSE: 180.20 mGy.cm FINDINGS: The skeletal structures are well mineralized. There is no evidence of facial bone fracture. The bony orbits are intact and the orbital contents are within normal limits. The zygomatic arches, nasal bones, and pterygoid plates are preserved. The maxilla and mandible are intact. There are no la yering blood products within the paranasal sinuses. There is subtotal opacification of the left maxil clay antrum with an air-fluid level. Mild mucosal thickening and fluid is seen in the right maxillary antrum. There is subtotal opacification of the ethmoid sinuses in the right frontal sinus. Moderate mucosal thickening seen in the left frontal sinus. There is mild mucosal thickening within the spheno id sinuses. The mastoid air cells are well pneumatized. The visualized calvarium and upper cervical s pine are maintained. Partially imaged brain parenchyma is within normal limits. There are numerous de ntal caries involving the maxillary teeth. Periapical lucencies are seen involving bilateral maxillar y molars. A periapical lucency also involves the left maxillary canine. There is significant facial s oft tissue edema overlying the maxilla, left greater than right. The appearance is typical of celluli tis. No organized/drainable fluid collection is seen to indicate abscess. A mildly enlarged left subm ental lymph node measures 2.3 x 1.1 cm. IMPRESSION: 1. Periodontal disease as above with periapical lucencies involving several maxillary teeth. Follow u p with dentistry is recommended. 2. There is evidence of left facial cellulitis, greatest overlying the maxilla. This may relate to pe riodontal disease. No organized/drainable fluid collection is seen to indicate abscess. 3. Findings of pansinus disease as above. ACT 112: Negative or not required by law. Electronically signed by: Edi Islas M.D. 06/11/2022 8:18 AM
[2022-06-11 10:00] LABS: Estimated Average Glucose 171 mg/dl; Hemoglobin A1C 7.6 % (4.5-5.6)
--- NOTE | 2022-06-11 11:57 | Oral/Maxillofacial Consult ---
Date of Consultation June 11, 2022 Assessment & Plan (1) Facial cellulitis: (2) Dental caries: (3) Paranasal sinus disease: (4) COVID-19: History of Present Illness Reason for Consultation: acute left facial swelling Attending Physician: Anita Medina MD History of Present Illness Oral Maxillofacial Surgery Exam Present Complaint: I have pain/swelling/drainage from my infected upper left teeth. Symptoms have been ongoing for a while. Had on and off pain then on Wednesday really painful and then developed acute swelling with left cheek and eye last night Went to ER now admitted\ Tested + for COVID no symptoms Oral Exam: Finding--swollen mucobuccal fold upper left, swollen eye, face and cheek, benny gingival tissue with deep pocket formation.Teeth are grossly carious and removal is clinical indicated. There is no fluctuance associated with the infection at this time. No drainable pus is present.The infraorbital tissue is very edematous The mucobuccal fold is hard--organization has not occurred as of yet. The follow ing teeth are grossly decayed and ideally need to be extracted= 1,2,5,11,12,15,16 I will make a final decision at the time of the I&D tomorrow in the. Consent to be signed prior to the surgery Imaging: CT SCAN OF THE FACIAL BONES WITH IV CONTRAST CLINICAL HISTORY: Facial swelling. FINDINGS: The skeletal structures are well mineralized. There is no evidence of facial bone fracture. The bony orbits are intact and the orbital contents are within normal limits. The zygomatic arches, nasal bones, and pterygoid plates are preserved. The maxilla and mandible are intact. There are no layering blood products within the paranasal sinuses. There is subtotal opacification of the left maxillary antrum with an air-fluid level. Mild mucosal thickening and fluid is seen in the right maxillary antrum. There is subtotal opacification of the ethmoid sinuses in the right frontal sinus. Moderate mucosal thickening seen in the left frontal sinus. There is mild mucosal thickening within the sphenoid sinuses. The mastoid air cells are well pneumatized. The visualized calvarium and upper cervical spine are maintained. Partially imaged brain parenchyma is within normal limits. There are numerous dental caries involving the maxillary teeth. Periapical lucencies are seen involving bilateral maxillary molars. A periapical lucency also involves the left maxillary canine. There is significant facial soft tissue edema overlying the maxilla, left greater than right. The appearance is typical of cellulitis. No organized/drainable fluid collection is seen to indicate abscess. A mildly enlarged left submental lymph node measures 2.3 x 1.1 cm. IMPRESSION: 1. Periodontal disease as above with periapical lucencies involving several maxillary teeth. Follow up with dentistry is recommended. 2. There is evidence of left facial cellulitis, greatest overlying the maxilla. This may relate to periodontal disease. No organized/drainable fluid collection is seen to indicate abscess. 3. Findings of pansinus disease as above. Soft tissue: floor of the mouth, tongue, hard/soft palate, posterior pharyngeal area all with in normal limits, no pathology or abnormal findings noted. Swollen infraorbital area left side Mucobuccal fold Oral Care: Overall oral care is poor Occlusion: Class I TMJ exam: No pop, clicking, pain, good ROM, No history of TMJ injury or dysfunction Periodontal exam: Significant evidence of periodontal pathology, bleeding gums, periodontal pocketing and hyperplastic tissues Head/Neck exam: Neck is supple, FROM, Able to extend and flex neck w/o difficulty, no masses, no abnormalities, no airway issues, ? evidence of sleep apnea secondary to neck size Treatment Plan: Admission to medical control DM IV antibiotics Arrange for I&D with extraction of the infected teeth upper jaw Set up with general anesthesia in hospital due to complexity of the procedure I reviewed the treatment plan and consent with the patient. Understanding was expressed. Time was given for questions regarding the surgery, risks and post op care. Discussed alternative to treatment--procedure as planned, Do not do surgery The following teeth are decayed and fractured and removal is indicated ILIANA: Risks discussed: Bleeding,Pain,swelling,infection, dry socket, delayed healing, nerve injury to face,lips,tongue,chin area which could be permanent (rare). TMJ, jaw stiffness, change in bite (rare), ear pain (referred). Sinus problems like fistula or infection. Need to leave a small root fragment in place to avoid injury to nerve or sinus. Relationship of wisdom teeth to nerve/sinus and risk of jaw fracture. Home care reviewed: tooth brushing, rinsing, follow up care with Dr Rapp. diet=[id number] dental. Discussed activity level, driving/work while on Rx pain Meds. Surgery to be set up tomorrow in OR for I&D and dental extractions as needed Allergies Allergy/AdvReac Type Severity Reaction Status Date / Time No Known Allergies Allergy Mild NONE Verified 03/06/09 08:13 Home Medications Medication Instructions Recorded Confirmed Type albuterol sulfate 90 mcg/actuation 2 puff inhalation Q4H PRN 06/11/22 06/11/22 History aerosol inhaler Shortness Of Breath Or Wheezing insulin aspart U-100 100 unit/mL 12 unit subcut AC 06/11/22 06/11/22 History (3 mL) subcutaneous pen insulin glargine 100 unit/mL (3 30 unit subcut HS 06/11/22 06/11/22 History mL) subcutaneous pen (Lantus Solostar U-100 Insulin) simvastatin 40 mg tablet 40 mg PO HS 06/11/22 06/11/22 History Patient History Medical History GERD (gastroesophageal reflux disease) Hyperglycemia due to type 2 diabetes mellitus Surgical History No pertinent past surgical history Social History Smoking Status: Current every day smoker Hx Alcohol Use: No Hx Substance Use: No Preferred Language: Cambodian Communication Ability: Effective 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 Beliefs That Will Affect Care: None Current Living Situation: Spouse Feels Safe at Home: Yes Results & Data ([facility]) Vital Signs (Past 12 Hours) Vital Signs Temp Pulse Resp BP Pulse Ox O2 Del Method 06/11/22 10:12 75 16 148/85 H 95 Room Air 06/11/22 09:09 88 18 149/88 H 94 Room Air 06/11/22 07:00 89 18 157/84 H 98 Room Air 06/11/22 03:00 85 18 168/88 H 98 Room Air 06/11/22 02:31 36.9 C 80 16 170/103 H 98 Room Air PG Care Time/CCT Total # of Minutes Spent Total Time Spent with Patient: Total time spent is greater than 50% in coordination of care (as documented) at patient's floor/unit and/or counseling patient: Coding Level of Care Code INP/OBS CONSULT LVL 3, 45 MIN Diagnoses Facial cellulitis L03.211 Dental caries K02.9 Paranasal sinus disease J34.9 COVID-19 U07.1
--- NOTE | 2022-06-11 12:13 | Pharmacy Report ---
Pharmacy Glycemic Short Note 2 - Date of Service June 11, 2022 - Glycemic Short BSG Results (Last 24 hours): 06/10/22 06/11/22 06/11/22 23:18 05:29 06:42 Glucose 142 H 125 H POC Glucose 151 H 06/11/22 11:45 Glucose POC Glucose 159 H OUTPATIENT ANTIDIABETIC REGIMEN: * Lantus 30 units SQ HS * Novolog 12 units AC HbA1C: 7.6% ASSESSMENT: * Pt is a 42 year old male admitted with a dental infection. History of type 2 DM. Pharmacy consulted to assist with glycemic management. * BSGs 151-159mg/dL since admission. Currently NPO and receiving IV antibiotics. * Agree with initiating reduced dose Lantus given NPO. 15 units tonight and will titrate as needed. Novolog q6 with a moderate stress scale. PLAN FOR INPATIENT GLYCEMIC CONTROL: * Hold outpatient oral diabetes medications * Basal insulin * Lantus 15 units SQ HS * Bolus insulin * NovoLog per scale ACHS or Q6hrs while NPO * Goal Range: Low 110 mg/dL - High 140 mg/dL * Correction Factor: 20 mg/dL/unit * Nutritional / Prandial insulin per carb ratio of 1 unit per 4 grams CHO consumed
--- NOTE | 2022-06-11 14:13 | Communication Note ---
Date of Service: June 11, 2022 Patient was seen and evaluated for follow-up of left facial swelling and dental infection. Lying in bed with no acute distress. Patient said that she co ntinues to have pain in left upper tooth area but controllable with the pain meds. He said that he is hungry. Denies any chest pain, palpitation, dizziness, shortness of breath. CT face showed periodontal disease as above with periapical lucencies involving several maxillary teeth.There is evidence of left facial cellulitis, greatest overlying the maxilla. This may relate to periodontal disease. No organized/drainable fluid collection is seen to indicate abscess. Labs done in the ER showed WBC elevated at 12.5 on admission. Case discussed with oral maxillofacial Dr. Rapp that plan to take to the OR tomorrow for I&D and dental removal. Continue IV Unasyn. Continue pain control. We will make n.p.o. after midnight. Tested positive for COVID-19. But patient denies any symptom. Saturated well on room air. He does not meet any criteria to start any treatment with steroid or remdesivir. Continue monitor closely. MD Carol
--- NOTE | 2022-06-11 17:57 | Anesthesiology Consultation ---
Date of Service June 11, 2022 Assessment & Plan Chart Review Chart Review: Acceptable Risk for Surgery and Patient NOT seen in Pre Admission Testing Consults Requested none ASA ASA3 Proposed Anesthesia Anesthesia Type: General History Surgery Operation Date: 06/12/22 07:55 Proposed Procedures p Left Facial Incision and Drainage (Internal) - Vel Rapp DMD s Tooth Extraction - Vel Rapp DMD Height/Weight Height: 5 ft 8 in Weight: 114.6 kg Allergies Allergy/AdvReac Type Severity Reaction Status Date / Time No Known Allergies Allergy Mild NONE Verified 03/06/09 08:13 Medications Home Medications Medication Instructions Recorded Confirmed Last Taken albuterol sulfate 90 mcg/actuation 2 puff inhalation Q4H PRN 06/11/22 06/11/22 Unknown aerosol inhaler Shortness Of Breath Or Wheezing insulin aspart U-100 100 unit/mL 12 unit subcut AC 06/11/22 06/11/22 Unknown (3 mL) subcutaneous pen insulin glargine 100 unit/mL (3 30 unit subcut HS 06/11/22 06/11/22 Unknown mL) subcutaneous pen (Lantus Solostar U-100 Insulin) simvastatin 40 mg tablet 40 mg PO HS 06/11/22 06/11/22 Unknown Active Medications Generic Name Dose Route Start Last Admin Trade Name Freq PRN Reason Stop Dose Admin Heparin Sodium (Porcine) 5,000 units 06/11/22 06:00 06/11/22 13:55 Heparin Sod 5,000 Unit/0.5 Ml Vial SQ 07/11/22 05:59 5,000 units Q8 SHANE Administration Sodium Chloride 1,000 mls @ 125 mls/hr 06/11/22 03:43 06/11/22 13:55 Nss 1000ml IV 07/11/22 03:42 125 mls/hr .Q8H SHANE Administration Ampicillin Sodium/Sulbactam 108 mls @ 200 mls/hr 06/11/22 06:00 06/11/22 17:39 Sodium 3,000 mg/ Sodium IV 06/18/22 05:59 200 mls/hr Chloride Q6H SHANE Administration Protocol Insulin Aspart 0 units 06/11/22 04:30 06/11/22 11:50 Insulin Aspart Per Unit SC 07/11/22 04:29 Not Given Q6 SHANE Past Medical History Medical History COVID-19 Facial cellulitis GERD (gastroesophageal reflux disease) Hyperglycemia due to type 2 diabetes mellitus morbid obesity + tobacco smoker Exercise / Class Metabolic Activity II 4-5 Yardwork/Stairs/Walk up hill Past Surgical History Surgical History No pertinent past surgical history Past Anesthesia History No Hx of Anesthesia Complications and No Family Hx of Anesthesia Complications History of PONV No Hx of PONV and No Hx of Motion Sickness Social History Smoking Status: Current every day smoker Hx Alcohol Use: No Hx Substance Use: No Physical Exam Vital Signs Last Vital Signs Temp 36.9 C 06/11/22 02:31 Pulse 75 06/11/22 10:12 Resp 16 06/11/22 10:12 BP 148/85 H 06/11/22 10:12 Pulse Ox 95 06/11/22 10:12 O2 Del Method 06/11/22 10:12 Testing Laboratory Results 06/11/22 06:42 06/11/22 06:42 Hemoglobin A1c 7.6 % (4.5-5.6) H 06/11/22 06:42 06/11/22 11:45 POC Glucose 159 H
[2022-06-11] MEDS: MoRPHine SULFATE 2 MG/ML CARP IV PRN (19:54)
[2022-06-11] MEDS ORDERED: LANTUS PER UNIT CHARGE SQ SCH (21:00)
[2022-06-11] MEDS: SIMVASTATIN 40 MG TAB PO SCH (21:30)
[2022-06-12] MEDS: AMPICILLIN/SULBACTAM SOD 3,000 MG in 0.9 % SODIUM CHLORIDE 100 ML IV SCH ×4 (00:04→18:37)
[2022-06-12] MEDS: MoRPHine SULFATE 2 MG/ML CARP IV PRN ×4 (00:05→16:24)
[2022-06-12] MEDS: SODIUM CHLORIDE 0.9% 1000ML 1,000 ML IV SCH ×3 (03:49→16:58)
[2022-06-12] MEDS: INSULIN ASPART PER UNIT SC SCH ×3 (06:24→21:12)
[2022-06-12] MEDS: HEPARIN SOD 5,000 UNIT/0.5 ML VIAL SQ SCH ×3 (06:31→21:13)
[2022-06-12 09:03] LABS: Hematocrit (blood only) 41.2 % (40.1-51.0); Hemoglobin 14.4 g/dl (14.0-18.0); Mean Corpuscular Volume 85.8 fL (80.0-100.0); Mean Platelet Volume 10.3 fL (9.4-12.4); Platelet Count 198 K/uL (130-400); RDW Coefficient of Variation 11.9 % (11.5-14.5); RDW Standard Deviation 37.6 fL (36.4-46.3); White Blood Count 11.01 K/ul (4.8-10.8)
--- NOTE | 2022-06-12 12:44 | Pharmacy Report ---
Pharmacy Glycemic Short Note 2 - Date of Service June 12, 2022 - Glycemic Short BSG Results (Last 24 hours): 06/11/22 06/11/22 06/12/22 18:10 23:19 06:15 POC Glucose 225 H 211 H 155 H 06/12/22 11:31 POC Glucose 174 H OUTPATIENT ANTIDIABETIC REGIMEN: * Lantus 30 units SQ HS * Novolog 12 units AC * HbA1C: 7.6% ASSESSMENT: 06/12/22: * Mr Tavera has been NPO since midnight for dental procedure today in the OR. * BSGs have been slightly above goal today. Lantus increased to better match home dose. * Unsure how quickly patient will resume diet post-op, depending on extent of dental work/extraction. * Will continue to follow and adjust regimen as indicated. 06/11 * Pt is a 42 year old male admitted with a dental infection. History of type 2 DM. Pharmacy consulted to assist with glycemic management. * BSGs 151-159mg/dL since admission. Currently NPO and receiving IV antibiotics. * Agree with initiating reduced dose Lantus given NPO. 15 units tonight and will titrate as needed. Novolog q6 with a moderate stress scale. PLAN FOR INPATIENT GLYCEMIC CONTROL: * Basal insulin * Lantus 25 units SQ qPM * Bolus insulin * NovoLog per scale ACHS or Q6hrs while NPO * Goal Range: Low 110 mg/dL - High 140 mg/dL * Correction Factor: 20 mg/dL/unit * Nutritional / Prandial insulin per carb ratio of 1 unit per 6 grams CHO consumed
[2022-06-12] MEDS ORDERED: PROPOFOL IV EMULSION 10 MG/ML 20 ML VIAL IV ONE ×2 (13:30→13:32)
[2022-06-12] MEDS ORDERED: ONDANSETRON INJ 2 MG/ML 2 ML VIAL ONE (13:30)
[2022-06-12] MEDS ORDERED: MIDAZOLAM HCL 1 MG/ML 2ML VIAL ONE (13:31)
[2022-06-12] MEDS ORDERED: fentaNYL citrate 100 MCG/2 ML VIAL ONE (13:31)
[2022-06-12] MEDS ORDERED: ROCURONIUM BROMIDE 10 MG/ML 5 ML VIAL IV ONE (13:33)
[2022-06-12] MEDS ORDERED: LIDOCAINE 2% MPF LOCAL 5 ML VIAL INFIL ONE (13:33)
[2022-06-12] MEDS ORDERED: PHENYLEPHRINE 100MCG/ML 5ML SYR ONE (13:33)
[2022-06-12] MEDS ORDERED: ePHEDrine sulfate 50 MG/ML SYR ONE (13:33)
[2022-06-12] MEDS ORDERED: SUCCINYLCHOLINE CHLORIDE 20 MG/ML 10 ML VIAL IV ONE (13:33)
[2022-06-12] MEDS ORDERED: ATROPINE SULFATE 0.1 MG/ML 10ML SYR IV PRN (13:38)
[2022-06-12] MEDS ORDERED: fentaNYL citrate 100 MCG/2 ML VIAL IV PRN (13:38)
[2022-06-12] MEDS ORDERED: ePHEDrine sulfate 50 MG/ML AMP IV PRN (13:38)
[2022-06-12] MEDS ORDERED: ONDANSETRON INJ 2 MG/ML 2 ML VIAL IV PRN (13:38)
[2022-06-12] MEDS ORDERED: SUGAMMADEX SODIUM 200 MG/2 ML VIAL IV ONE (14:06)
--- NOTE | 2022-06-12 14:06 | History & Physical Bridge Note ---
Date of Service June 12, 2022 History & Physical Bridge Note I have examined the patient, reviewed the History & Physical and in the interval since the performance of the History & Physical I have noted the following changes of clinical significance: no changes noted OK for the I&D and extractions Consent signed
[2022-06-12] MEDS ORDERED: CHLORHEXIDINE GLUCONATE 0.12% 480 ML MT ONE (14:24)
[2022-06-12] MEDS ORDERED: BUPIVACAINE/EPINEPHRINE 0.5% 1:200,000 1.8 ML CARP ONE (14:26)
--- NOTE | 2022-06-12 15:23 | Operative Report ---
PG Post Operative Report Pre & Post Diagnosis Operation Date: 06/12/22 07:55 Pre-Op Diagnosis: Facial cellulitis Post-Op Diagnosis: Facial cellulitis I identified the patient and participated in the time-out.: Yes Procedure Operation Date: 06/12/22 07:55 Actual Procedures p Left Facial Incision and Drainage (Internal), Tooth Extraction(Left) - Vel Rapp DMD Surgeon Vel Rapp DMD Textile Technologist none Estimated Blood Loss 4 Findings Consistent with Post-Op Diagnosis acute facial infection left side Specimens I&D Drains none Anesthesia Type General Complications none Indications acute facial infection grossly infected teeth Description of Procedure Actual Procedures p Incision and Drainage left infraorbital Abscess; Removal of Tooth #1,2,11,12,15,16 (Not Applicable) - Vel Rapp DMD K12.2 L03.213 CPT 52367 D7210 for # 1,16,11,12,15,16 Once cleared for surgery general anesthesia was achieved, the eyes were protected by the anesthesia dept criteria. A time out was take for patient ID, antibiotics, equipment and position verification once all agreed the procedure began. Local anesthesia using Marcaine with a vasoconstrictor ( 1.8 ml per site) given into right inferior alveolar nerve A throat pack was placed after the oral cavity was irrigated with saline. Once a surgical level of anesthesia was obtained and the local anesthesia was given time for the blocks the surgery was started. I turned my attention to the infection which was located in the floor of the mo uth and submental area. The tongue was elevated and there was also swelling associated with tooth # 28 ( see CT scan report) Incision and Drainage of left nasal-labial/subperiosteal abscess CPT 06207 Using a 15 blade an incision was made around tooth # 7-13 the alveolar ridge tissue was reflected. Once the incision was made a lot of pus extruded from the site. This drainage was cultured for anaerobic and aerobic bacteria. A curved hemostat was carefully placed into the infected space along the nasal labial side of the upper jaw and into the infraorbital space. Some further drainage was now allowed to escape. I palpated the cheek and no further drainage was expressed. The area was irrigated with at least 100 ml of NS solution. tooth. Upper dental extractions 1,2,11,12,15,16---D7210 for # 1,16,11,12,15,16 The full thick Muco-periosteal flap was made on the facial aspect from # 1-3 and 7-16 The flap was reflected to expose the the subperiosteal space the bone adjacent to the carious infected teeth The rogue was used to remove bone, the teeth were removed with a 301 elevator, there was a large amount of granulation tissue on the apex and some more pus that was expressed. Closure was obtained with a 2-0 chromic suture. I inspected the sites to insure all bleeding was controlled. I removed the throat pack and suctioned the throat. Bilateral gauze pressure dressings were placed. All instrument and sponge count was correct. the patient was allowed to awake from the anesthesia. Once full awake the anesthesia tube was removed and the patient was taken to the recovery room with all vital sign stable. The patient tolerated the surgery very well. I will follow the patient in my office, Rx and instructions will be given upon discharge. I attest to the content of the Intraoperative Record and any orders documented therein. Any exceptions are noted below.
--- NOTE | 2022-06-12 15:53 | Electrocardiogram Report ---
Test Reason : Blood Pressure : / mmHG Vent. Rate : 079 BPM Atrial Rate : 079 BPM P-R Int : 132 ms QRS Dur : 082 ms QT Int : 364 ms P-R-T Axes : 060 053 043 degrees QTc Int : 417 ms Normal sinus rhythm with sinus arrhythmia Normal ECG When compared with ECG of 11-DEC-2012 20:03, ST no longer elevated in Lateral leads Confirmed by Leo Simmons ([id number]) on 06/12/2022 3:53:01 PM Referred By: REFERRED SELF Confirmed By:Leo Simmons
[2022-06-12] MEDS ORDERED: LANTUS PER UNIT CHARGE SQ SCH (16:00)
--- NOTE | 2022-06-12 16:03 | Anesthesiology Progress Note ---
Date of Service June 12, 2022 Anesthesia Post Procedure Vital Signs Vital Signs: Temp Pulse Pulse Resp BP Pulse Ox O2 Del Method 06/12/22 16:00 99.1 F 87 16 178/96 H 97 Nasal Cannula 06/12/22 15:50 90 13 182/98 H 91 Room Air 06/12/22 15:40 92 H 15 169/94 H 99 Oxymask 06/12/22 15:34 99.1 F 94 H 17 186/96 H 92 Oxymask 06/12/22 13:42 98.2 F 78 20 168/88 H 97 Room Air 06/12/22 07:15 98.1 F 83 16 158/81 H 93 Room Air 06/12/22 00:18 Room Air 06/11/22 23:09 98.6 F 77 18 178/77 H 97 Room Air 06/11/22 19:50 98.4 F 91 H 18 151/75 H 96 Room Air O2 Flow Rate 06/12/22 16:00 2 06/12/22 15:50 06/12/22 15:40 5 06/12/22 15:34 5 06/12/22 13:42 06/12/22 07:15 06/12/22 00:18 06/11/22 23:09 06/11/22 19:50 Pain Intensity Face: Pain Intensity: 2 Transfer of Care Handoff Completed per policy Notes Mental Status: alert / awake / arousable and participated in evaluation Patient Amnestic to Procedure: Yes Nausea / Vomiting: adequately controlled Pain: adequately controlled Airway Patency, RR, SpO2: stable & adequate BP & HR: stable & adequate Hydration State: stable & adequate Anesthetic Complications: no major complications apparent and Pt Satisfied with anesthetic care
[2022-06-12] MEDS ORDERED: Nursing to Pharmacy Communication SCH (17:00)
--- NOTE | 2022-06-12 18:10 | Hospitalist Progress Note ---
Date of Service June 12, 2022 Assessment & Plan (1) Facial cellulitis: (2) Dental caries: (3) COVID-19: Plan Facial cellulitis Periodontal abscess -s/p abscess I/D today and teeth #1,2,11,12,15,16 extraction -continue with Unasyn. Will give toradol 15mg IV Q 6 x 2 doses to help with pain and swelling Covid 19 -no symptoms. Not requiring oxygen IDDM -continue basal bolus insulin HLD -statin Likely discharge home tomorrow Admission and Anticipated Discharge Date Admission Date: June 11, 2022 Subjective went for oral surgery today. He's doing well. Pain is tolerable. Still with left face swelling Physical Exam Physical Exam: No acute distress, pleasant and comfortable ENMT: Left face and left periorbital swelling Respiratory: Breathing comfortably on room air, no wheezing/rhonchi/rales Cardiovascular: Regular rate and rhythm, no murmurs/rubs/gallops Gastrointestinal (Abdomen): soft, non tender, non distended Musculoskeletal: no edema Results & Data Results & Data ([facility]) Vital Signs (Past 12 Hours) Vital Signs Temp Pulse Pulse Resp BP Pulse Ox O2 Del Method 06/12/22 17:58 37 C 88 16 177/83 H 95 Room Air 06/12/22 17:01 36.9 C 86 18 175/92 H 96 Room Air 06/12/22 16:22 37.1 C 90 18 176/94 H 96 Nasal Cannula 06/12/22 16:00 37.3 C 87 16 178/96 H 97 Nasal Cannula 06/12/22 15:50 90 13 182/98 H 91 Room Air 06/12/22 15:40 92 H 15 169/94 H 99 Oxymask 06/12/22 15:34 37.3 C 94 H 17 186/96 H 92 Oxymask 06/12/22 13:42 36.8 C 78 20 168/88 H 97 Room Air 06/12/22 07:15 36.7 C 83 16 158/81 H 93 Room Air O2 Flow Rate 06/12/22 17:58 06/12/22 17:01 06/12/22 16:22 2 06/12/22 16:00 2 06/12/22 15:50 06/12/22 15:40 5 06/12/22 15:34 5 06/12/22 13:42 06/12/22 07:15
[2022-06-12] MEDS: KETOROLAC TROMETHAMINE 15 MG/ML VIAL IV SCH (18:38)
[2022-06-12] MEDS: SIMVASTATIN 40 MG TAB PO SCH (21:13)
[2022-06-13] MEDS: SODIUM CHLORIDE 0.9% 1000ML 1,000 ML IV SCH ×3 (00:34→09:14)
[2022-06-13] MEDS: KETOROLAC TROMETHAMINE 15 MG/ML VIAL IV SCH (00:34)
[2022-06-13] MEDS: AMPICILLIN/SULBACTAM SOD 3,000 MG in 0.9 % SODIUM CHLORIDE 100 ML IV SCH ×3 (00:34→13:11)
[2022-06-13] MEDS: HEPARIN SOD 5,000 UNIT/0.5 ML VIAL SQ SCH ×2 (06:13→13:12)
[2022-06-13] MEDS: MoRPHine SULFATE 2 MG/ML CARP IV PRN (09:18)
[2022-06-13] MEDS: INSULIN ASPART PER UNIT SC SCH ×2 (09:34→13:06)
[2022-06-13 09:48] LABS: Basophils # (auto) 0.03 K/uL (0-0.2); Basophils % (auto) 0.4 %; Eosinophils # (auto) 0.11 K/uL (0-0.50); Eosinophils % (auto) 1.6 %; Hematocrit (blood only) 37.2 % (40.1-51.0); Immature Granulocytes # (auto) 0.02 K/uL (0.00-0.02); Immature Granulocytes % (auto) 0.3 %; Lymphocytes # (auto) 1.51 K/uL (1.2-3.4); Lymphocytes % (auto) 21.6 %; Mean Corpuscular Hemoglobin 29.9 pg (25.0-34.0); Mean Corpuscular Hgb Conc 34.9 g/dL (32.0-36.0); Mean Corpuscular Volume 85.5 fL (80.0-100.0); Mean Platelet Volume 9.8 fL (9.4-12.4); Monocytes # (auto) 0.47 K/uL (0.24-0.82); Monocytes % (auto) 6.7 %; Neutrophils # (auto) 4.84 K/uL (1.4-6.5); Neutrophils % (auto) 69.4 %; Platelet Count 172 K/uL (130-400); RDW Coefficient of Variation 12.1 % (11.5-14.5); RDW Standard Deviation 37.7 fL (36.4-46.3); Red Blood Count 4.35 M/uL (4.63-6.08); White Blood Count 6.98 K/ul (4.8-10.8)
[2022-06-13 10:12] LABS: BUN Creatinine Ratio 12.1 (10-20); Calcium 8.2 mg/dl (8.5-10.1); Creatinine Clr Calc Pharmacy 179.2 ml/min; Est GFR (African American) 138.2 ml/min; Est GFR (Non-African American) 119.3 ml/min; Potassium 3.5 mmol/L (3.5-5.1)
--- NOTE | 2022-06-13 10:24 | Oral/Maxillofacial Progress Nt ---
Date of Service June 13, 2022 Assessment & Plan Admission and Anticipated Discharge Date Admission Date: June 11, 2022 Subjective Post Op infection evaluation 1 day The infected area is responding very well Swelling is almost gone and the oral tissue is healing well No drainage is noted. Cultures pending but excellent clinical response noted Infection has responded very well to the antibiotics, extractions and the I and D. I requested that the patient continue with massage, heat and oral wound care as an out patient At this time the area is well healed and responded well to treatment. He can be D/C from an Oral Surgery point of view I will follow in my office on Jun 25 at 1:45 pm--he has my card I will Rx--Augmentin and Vicodin Results & Data ([facility]) Vital Signs (Past 12 Hours) Vital Signs Temp Pulse Pulse Resp BP Pulse Ox O2 Del Method 06/13/22 08:08 37.0 C 80 16 156/88 H 97 Room Air 06/13/22 03:05 36.7 C 76 18 147/83 H 96 Room Air PG Care Time/CCT Total # of Minutes Spent Total Time Spent with Patient: Total time spent is greater than 50% in coordination of care (as documented) at patient's floor/unit and/or counseling patient: Coding Level of Care Code None
--- NOTE | 2022-06-13 14:47 | Discharge Summary ---
Date of Service June 13, 2022 Admission HPI Per Admitting Provider A 42-year-old male with past medical history significant for type 2 diabetes, hyperlipidemia, diabetic retinopathy, hypertension and tobacco abuse, presents with dental infection. The patient says he noticed pain in his left upper tooth since yesterday. It is not getting better. Also, his left face is swollen and having a pain while eating. Denies any fever or chills. No chest pain or shortness of breath, no nausea, no vomiting, no abdominal pain. Normal bowel and bladder movements. No swelling in the legs. No headache, no blurred visions, no earache, no runny nose, no sore throat, no cough. Resting comfo rtably, hemodynamically stable. His COVID test came back positive. The patient is not COVID vaccinated, but saturating okay on room air. Principal Diagnosis Facial cellulitis Dental Caries Periodontal abscess Asymptomatic Covid 19 infection Discharge Exam Appears well ENMT Face and periorbital swelling is markedly improved Respiratory Breathing comfortably on room air, no wheezing/rhonchi/rales Cardiovascular Regular rate and rhythm, no murmurs/rubs Gastrointestinal (Abdomen) soft, non tender Discharge Data Allergies Allergy/AdvReac Type Severity Reaction Status Date / Time No Known Allergies Allergy Mild NONE Verified 03/06/09 08:13 Consultations 06/11/22 01:26 ED Decision to Admit Stat 06/11/22 07:04 Consult Oromaxillofacial Surgery Routine Procedures Performed Operation Date: 06/12/22 07:55 Actual Procedures p Left Facial Incision and Drainage (Internal), Tooth Extraction(Left) - Vel Rapp DMD Ordered Studies 06/10/22 23:05 CT facial bones w con Urgent Hospital Course (1) Facial cellulitis: (2) Dental caries: (3) COVID-19: Plan Mr Alex Tavera is a 42 year old man with history of IDDM, HTN, HLD and tobacco use presents to ER on 06/10 with several days of teeth pain and now with face swelling. Here he was found to have multiple dental caries with periodontal abscess and facial cellulitis. In addition, a Covid 19 screen was positive but he did not display any respiratory symptoms. He was placed on Unasyn and underwent oral surgery with teeth #1,2,11,12,15,16 extraction and abscess I/D. Abscess fluid was sent for culture and is pending at time of discharge. Patient responded remarkably well to treatment and the day after his teeth extraction and abscess I/D his facial swelling had nearly resolved. He was seen by OMFS while here and will go home on Augmentin and follow up with Dr Rapp in 2 weeks. He was instructed to return to ER if his symptoms worsen. Total Time Total Time Spent Total Time Spent (In Minutes): 35 Discharge Plan Discharge Items Patient Disposition: Home - Self-Care Reason For Visit: DENTAL INFECTION Discharge Diagnosis: s/p facial infection Condition on Discharge: Good Activity: Resume your previous activity Lifting: Gradually increase as tolerated Bathing: No limitations Exercise/Sports: Gradually increase as tolerated Driving/Machine Use: Resume 1 day after discharge Weightbearing: Full weightbearing Non-emergency contact: Surgeon Call non-emergency contact if: your symptoms worsen, your temperature is above 101.5 and your wound has increased drainage Follow-up/Referrals: Tay Mcdermott, DO [Primary Care Provider] - Vel Rapp, JEAN PIERRE [Physician] - 06/25/22 1:45 pm Diet: Full liquid and Clear liquid Diet Texture: Mechanical soft (ground) Addtl Attending Provider Instructions: ADDITIONAL ACTIVITY RECOMMENDATIONS: * [place] teeth after every meal. It is very important to keep your mouth clean to prevent infection. * Starting tonight rinse with the Peridex as directed then 2 x a day * it is very important to keep well hydrated, this prevents fever and possible dry socket pain SPECIAL CARE INSTRUCTIONS: *It is not uncommon that between day 2-4 that your swelling will be at its worst this is very normal, do not be alarmed. * Keep ice on the side of your face for the next 24 to 36 hours. This will help keep the swelling down. * After 36 hours, apply heat (hot water bottle or heating pad) for the next two days, as often as possible. * Tomorrow start rinsing your mouth with 1/2 teaspoon salt in 8 ounces warm water. This rinse should be used every 4-6 hours. * You may experience slight nausea. To prevent this, never take your medication on an empty stomach. If nauseated, take small sips of jessica kiara until you feel better; then you may start on applesauce and toast. * Some swelling is common. It should gradually decrease within 4-5 days. * A certain amount of bleeding is to be expected. It is often possible to control mild oozing by placing folded gauze over the area and biting down for 30 minutes. If you are unable to control excessive bleeding, call Dr Rapp at [phone] * You may experience some discomfort for a few days. If pain or swelling increases, Call Dr Rapp * Return to the office for a follow up check up on: June 25 at 1:45 * office address--[id number] phone # [phone] Pending Studies at Discharge: Yes Studies:: results of the I&D Stand-Alone Forms: My [facility], Smoking Cessation Medications and DC Order Prescriptions: Continued amoxicillin-pot clavulanate 875-125 mg tablet 1 tab PO Q12H Qty: 20 0RF hydrocodone-acetaminophen 5-325 mg tablet 1 tab PO Q4H PRN (Reason: pain) Qty: 14 0RF simvastatin 40 mg tablet 40 mg PO HS albuterol sulfate 90 mcg/actuation HFA aerosol inhaler 2 puff INHALATION Q4H PRN (Reason: Shortness Of Breath Or Wheezing) insulin aspart U-100 100 unit/mL (3 mL) insulin pen 12 unit SUBCUT AC insulin glargine [Lantus Solostar U-100 Insulin] 100 unit/mL (3 mL) insulin pen 30 unit SUBCUT HS Discharge Orders: Discharge Order (Routine); Ordered 06/13/22 Ordered By: Jack Aguilera/Other Patient Handouts: Dental Abscess Facial Cellulitis Admission Data Admit Date/Time: 06/11/22 03:27 Attending Provider: Jack Chopra Admit Provider: Artie Florence Primary Care Provider: Tay Mcdermott Other Providers: Artie Florence ; Vel Rapp
[2022-06-13] MEDS ORDERED: LANTUS PER UNIT CHARGE SQ SCH (21:00)
== END 2022-06-13 16:19 | disposition home or self-care (01) | DRG 579 ==
LOC: ED 20:41 → SUATTDRO 06-11 03:27 → EDINP 06-11 03:27 → 3W 06-11 03:44
DX: E66.9 Obesity, unspecified; Z68.38 Body mass index [BMI] 38.0-38.9, adult; E78.5 Hyperlipidemia, unspecified; J32.9 Chronic sinusitis, unspecified; K21.9 Gastro-esophageal reflux disease without esophagitis; L03.211 Cellulitis of face; E11.319 Type 2 diabetes mellitus with unspecified diabetic retinopathy without macular edema; F17.200 Nicotine dependence, unspecified, uncomplicated; U07.1 COVID-19; I10 Essential (primary) hypertension; K05.219 Aggressive periodontitis, localized, unspecified severity; K02.9 Dental caries, unspecified; Z79.4 Long term (current) use of insulin